=== PATIENT | male | born 1965 | race Two or more races ===

== ENCOUNTER 2023-04-01 22:27 | Inpatient (IN) | payer OTHER ==
[~2023-04-01] VITALS: Ht 177.8 cm; Wt 75.0 kg
[2023-04-02 00:49] LABS: BASOPHILS % (AUTO) 0.8 % (0.0-2.0); CALCIUM, TOTAL 8.2 mg/dL (8.8-10.5); CREATININE 1.35 mg/dL (0.60-1.30); EOSINOPHILS % (AUTO) 0.6 % (1.0-6.0); HEMATOCRIT 22.7 % (41-53); HEMOGLOBIN 7.5 g/dL (13.5-17.5); LYMPHOCYTES # (AUTO) 0.7 K/uL (1.0-4.8); LYMPHOCYTES % (AUTO) 9.3 % (22.0-44.0); MEAN CORPUSCULAR HEMOGLOBIN 29.9 pg (26.0-34.0); MEAN CORPUSCULAR HGB CONC 32.9 G/dL (31.0-37.0); MEAN CORPUSCULAR VOLUME 91 fL (80-100); MONOCYTES # (AUTO) 0.5 K/uL (0.1-1.0); MONOCYTES % (AUTO) 7.2 % (2.0-9.0); NEUTROPHILS # (AUTO) 5.7 K/uL (1.8-7.7); NEUTROPHILS % (AUTO) 82.1 % (40.0-70.0); PLATELET COUNT (AUTO) 260 K/uL (150-450); POTASSIUM 3.7 mmol/L (3.5-5.1); RED CELL DISTRIBUTION WIDTH 18.5 % (11.5-14.5)
[2023-04-02 00:55] LABS: BILIRUBIN,TOTAL 0.8 mg/dL (0.1-1.0); INR 1.2 (0.9-1.1); PROTHROMBIN TIME 12.4 SEC (9.4-11.6); TOTAL PROTEIN, SERUM 8.5 g/dL (6.4-8.2)
[2023-04-02] MEDS ORDERED: MIRT-89 PO (01:42)
[2023-04-02] MEDS ORDERED: GABA-1181 PO (01:42)
[2023-04-02] MEDS ORDERED: AMLO-257 PO (01:42)
[2023-04-02] MEDS ORDERED: ATOR40TA28 PO (01:42)
[2023-04-02] MEDS ORDERED: ASPI-1227 PO (01:42)
[2023-04-02] MEDS ORDERED: TAMS-13 PO (01:42)
[2023-04-02] MEDS ORDERED: BICT1TAB PO (01:42)
[2023-04-02] MEDS ORDERED: BUME1TAB34 PO (01:42)
[2023-04-02] MEDS ORDERED: 0.9% SODIUM CHLORIDE 10 ML SYRINGE IVP PRN (02:00)
[2023-04-02] MEDS ORDERED: ONDANSETRON HCL 4 MG/2 ML VIAL IVP PRN ×2 (02:00→10:00)
[2023-04-02] MEDS ORDERED: ACETAMINOPHEN 325 MG TABLET PO PRN ×2 (02:00→10:00)
[2023-04-02] MEDS ORDERED: SODIUM CHLORIDE 0.9% 1,000 ML IV ONE (02:15)
[2023-04-02 04:48] VITALS: BP 130/75; PULSE 71; RESP 20; TEMP 98.6
[2023-04-02 07:32] VITALS: BP 134/78; PULSE 74; RESP 20; TEMP 98.4
[2023-04-02] MEDS ORDERED: MORPHINE SULFATE 2 MG/ML SYRINGE IVP PRN (10:00)
[2023-04-02] MEDS ORDERED: ZOLPIDEM TARTRATE 5 MG TABLET PO PRN (10:00)
[2023-04-02] MEDS ORDERED: MAGNESIUM HYDROXIDE SUSPENSION 30 ML UDCUP PO PRN (10:00)
[2023-04-02] MEDS ORDERED: BISACODYL 10 MG RECTAL RECTAL SUPPOSITORY PR PRN (10:00)
[2023-04-02 11:30] LABS: EOSINOPHILS % (AUTO) 1.4 % (1.0-6.0); HEMATOCRIT 22.1 % (41-53); HEMOGLOBIN 7.1 g/dL (13.5-17.5); LYMPHOCYTES # (AUTO) 0.9 K/uL (1.0-4.8); LYMPHOCYTES % (AUTO) 17.9 % (22.0-44.0); MEAN CORPUSCULAR HEMOGLOBIN 29.4 pg (26.0-34.0); MEAN CORPUSCULAR HGB CONC 32.3 G/dL (31.0-37.0); MEAN CORPUSCULAR VOLUME 91 fL (80-100); MONOCYTES # (AUTO) 0.6 K/uL (0.1-1.0); MONOCYTES % (AUTO) 11.7 % (2.0-9.0); NEUTROPHILS # (AUTO) 3.4 K/uL (1.8-7.7); PLATELET COUNT (AUTO) 220 K/uL (150-450); RED BLOOD CELL COUNT(AUTO) 2.42 MIL/uL (4.50-5.90); RED CELL DISTRIBUTION WIDTH 18.6 % (11.5-14.5)
[2023-04-02 15:17] VITALS: BP 128/72; PULSE 77; RESP 18; TEMP 98.1
[2023-04-02] MEDS: HEPARIN SODIUM,PORCINE 5,000 UNITS/ML VIAL SQ SCH ×2 (16:06→23:36)
[2023-04-02 19:56] VITALS: BP 103/65; PULSE 81; RESP 18; TEMP 98.4
[2023-04-02] MEDS ORDERED: SODIUM CHLORIDE 0.9% 1,000 ML ONE (20:06)
[2023-04-02] MEDS: DOCUSATE SODIUM 100 MG CAPSULE PO SCH (20:13)
[2023-04-03 04:43] VITALS: BP 111/80; PULSE 84; RESP 20; TEMP 98.7
[2023-04-03 06:50] LABS: APPEARANCE,URINE HAZY (CLEAR); BILIRUBIN,URINE NEGATIVE (NEGATIVE); GLUCOSE, URINE (UA) NEGATIVE (NEGATIVE); KETONES,URINE NEGATIVE (NEGATIVE); LEUKOCYTE ESTERASE ,URINE MODERATE (NEGATIVE); NITRATE,URINE NEGATIVE (NEGATIVE); OCCULT BLOOD,URINE NEGATIVE (NEGATIVE); PH,URINE 6.5 (5.0-8.0); PROTEIN,URINE 30-70 mg/dL (NEGATIVE); SPECIFIC GRAVITIY, URINE 1.024 (1.003-1.030); UROBILINOGEN,URINE <=1.0 mg/dL (<=1.0)
[2023-04-03 07:09] LABS: BACTERIA,URINE Moderate /HPF (None Seen); RBC,URINE 0-2 /HPF (0-2)
[2023-04-03 07:11] LABS: BASOPHILS % (AUTO) 0.8 % (0.0-2.0); EOSINOPHILS % (AUTO) 0.9 % (1.0-6.0); HEMATOCRIT 24.5 % (41-53); HEMOGLOBIN 7.8 g/dL (13.5-17.5); LYMPHOCYTES # (AUTO) 1.2 K/uL (1.0-4.8); LYMPHOCYTES % (AUTO) 15.7 % (22.0-44.0); MEAN CORPUSCULAR HGB CONC 31.9 G/dL (31.0-37.0); MEAN CORPUSCULAR VOLUME 91 fL (80-100); MONOCYTES # (AUTO) 0.6 K/uL (0.1-1.0); MONOCYTES % (AUTO) 7.6 % (2.0-9.0); NEUTROPHILS # (AUTO) 5.9 K/uL (1.8-7.7); PLATELET COUNT (AUTO) 244 K/uL (150-450); RED BLOOD CELL COUNT(AUTO) 2.69 MIL/uL (4.50-5.90); RED CELL DISTRIBUTION WIDTH 18.6 % (11.5-14.5)
[2023-04-03 07:42] VITALS: BP 114/82; PULSE 68; RESP 20; TEMP 98.5
[2023-04-03 07:44] LABS: % IRON SATURATION 11.9 % (30-44)
[2023-04-03 07:46] LABS: ANION GAP 7 mmol/L (8-16); CARBON DIOXIDE 27 mmol/L (22-29); CHLORIDE 104 mmol/L (98-107); GLUCOSE,RANDOM 91 mg/dL (70-110); POTASSIUM 3.9 mmol/L (3.5-5.1); SODIUM SERUM 138 mmol/L (136-145)
[2023-04-03 07:47] LABS: ALANINE AMINOTRANSFERASE 11 U/L (12-78); ALBUMIN 1.5 g/dL (3.4-5.0); ALKALINE PHOSPHATASE 65 U/L (46-116); ASPARTATE AMINOTRANSFERASE 39 U/L (15-37); BILIRUBIN,TOTAL 0.7 mg/dL (0.1-1.0); CALCIUM, TOTAL 7.7 mg/dL (8.8-10.5); GLOMERULAR FILTR. RATE CALC > 60 mL/min (>60); TOTAL PROTEIN, SERUM 7.5 g/dL (6.4-8.2)
[2023-04-03] MEDS: BICTEGRAV/EMTRICIT/TENOFOV ALA 50-200-25 MG TABLET PO SCH (08:03)
[2023-04-03] MEDS: PANTOPRAZOLE SODIUM 40 MG DR TABLET PO SCH (08:03)
[2023-04-03] MEDS: DOCUSATE SODIUM 100 MG CAPSULE PO SCH ×2 (08:03→20:57)
[2023-04-03] MEDS: TAMSULOSIN HCL 0.4 MG CAPSULE PO SCH (08:04)
[2023-04-03] MEDS: HEPARIN SODIUM,PORCINE 5,000 UNITS/ML VIAL SQ SCH ×2 (08:05→16:15)
[2023-04-03] MEDS: ASPIRIN 81 MG DR TABLET PO SCH (08:08)
[2023-04-03] MEDS: AmLODIPine BESYLATE 5 MG TABLET PO SCH (08:09)
[2023-04-03] MEDS: ATORVASTATIN CALCIUM 40 MG TABLET PO SCH (08:10)
[2023-04-03] MEDS ORDERED: BUMETANIDE 1 MG TABLET PO SCH (09:00)
[2023-04-03 15:23] VITALS: BP 101/72; RESP 18
[2023-04-03 16:30] LABS: APPEARANCE,URINE HAZY (CLEAR); BILIRUBIN,URINE NEGATIVE (NEGATIVE); GLUCOSE, URINE (UA) NEGATIVE (NEGATIVE); KETONES,URINE NEGATIVE (NEGATIVE); LEUKOCYTE ESTERASE ,URINE MODERATE (NEGATIVE); NITRATE,URINE NEGATIVE (NEGATIVE); OCCULT BLOOD,URINE NEGATIVE (NEGATIVE); PH,URINE 6.5 (5.0-8.0); PROTEIN,URINE 30-70 mg/dL (NEGATIVE); SPECIFIC GRAVITIY, URINE 1.024 (1.003-1.030); UROBILINOGEN,URINE <=1.0 mg/dL (<=1.0)
[2023-04-03 16:45] LABS: BACTERIA,URINE Many /HPF (None Seen); RBC,URINE None Seen /HPF (0-2)
[2023-04-03 16:53] LABS: AMPHET/METH SCREEN,URINE POSITIVE (NEGATIVE); BARBITURATE SCREEN, URINE NEGATIVE (NEGATIVE); BENZODIAZEPINES SCREEN,URINE NEGATIVE (NEGATIVE); CANNABINOID SCREEN,URINE NEGATIVE (NEGATIVE); COCAINE SCREEN,URINE NEGATIVE (NEGATIVE); METHADONE SCREEN, URINE NEGATIVE (NEGATIVE); OPIATE SCREEN,URINE NEGATIVE (NEGATIVE); PHENCYCLIDINE SCREEN,URINE NEGATIVE (NEGATIVE)
[2023-04-03 20:46] VITALS: BP 123/83; PULSE 99; RESP 18; TEMP 98.2
[2023-04-03] MEDS: NYSTATIN 30 GM CREAM TP SCH (20:57)
[2023-04-04] MEDS: HEPARIN SODIUM,PORCINE 5,000 UNITS/ML VIAL SQ SCH ×3 (00:16→16:23)
[2023-04-04 04:59] VITALS: BP 117/85; PULSE 117; RESP 20; TEMP 98.3
[2023-04-04 06:00] LABS: BASOPHILS % (AUTO) 0.8 % (0.0-2.0); EOSINOPHILS % (AUTO) 1.5 % (1.0-6.0); HEMATOCRIT 27.3 % (41-53); HEMOGLOBIN 8.8 g/dL (13.5-17.5); LYMPHOCYTES # (AUTO) 1.4 K/uL (1.0-4.8); LYMPHOCYTES % (AUTO) 18.1 % (22.0-44.0); MEAN CORPUSCULAR HEMOGLOBIN 29.2 pg (26.0-34.0); MEAN CORPUSCULAR HGB CONC 32.1 G/dL (31.0-37.0); MEAN CORPUSCULAR VOLUME 91 fL (80-100); MONOCYTES # (AUTO) 0.6 K/uL (0.1-1.0); NEUTROPHILS # (AUTO) 5.4 K/uL (1.8-7.7); NEUTROPHILS % (AUTO) 71.6 % (40.0-70.0); PLATELET COUNT (AUTO) 260 K/uL (150-450); RED CELL DISTRIBUTION WIDTH 19.4 % (11.5-14.5)
[2023-04-04 06:10] LABS: ANION GAP 10 mmol/L (8-16); CALCIUM, TOTAL 7.9 mg/dL (8.8-10.5); CARBON DIOXIDE 26 mmol/L (22-29); CHLORIDE 103 mmol/L (98-107); GLOMERULAR FILTR. RATE CALC > 60 mL/min (>60); GLUCOSE,RANDOM 188 mg/dL (70-110); PHOSPHORUS 3.1 mg/dL (2.5-4.9); POTASSIUM 3.5 mmol/L (3.5-5.1); SODIUM SERUM 139 mmol/L (136-145)
[2023-04-04] MEDS: ASPIRIN 81 MG DR TABLET PO SCH (07:59)
[2023-04-04] MEDS: TAMSULOSIN HCL 0.4 MG CAPSULE PO SCH (07:59)
[2023-04-04] MEDS: AmLODIPine BESYLATE 5 MG TABLET PO SCH (07:59)
[2023-04-04] MEDS: BICTEGRAV/EMTRICIT/TENOFOV ALA 50-200-25 MG TABLET PO SCH (07:59)
[2023-04-04] MEDS: ATORVASTATIN CALCIUM 40 MG TABLET PO SCH (08:00)
[2023-04-04] MEDS: DOCUSATE SODIUM 100 MG CAPSULE PO SCH ×2 (08:00→20:30)
[2023-04-04] MEDS: PANTOPRAZOLE SODIUM 40 MG DR TABLET PO SCH (08:00)
[2023-04-04] MEDS: MULTIVITAMINS WITH MINERALS, THERAPEUTIC TABLET PO SCH (08:00)
[2023-04-04] MEDS: NYSTATIN 30 GM CREAM TP SCH ×2 (08:02→20:30)
[2023-04-04 08:31] VITALS: BP 124/90; PULSE 106; RESP 18; TEMP 97.7
[2023-04-04] MEDS: HYDROCODONE/ACETAMINOPHEN 5-325 MG TABLET PO PRN ×2 (10:06→16:26)
[2023-04-04 19:38] VITALS: BP_SYST 112; BP_SYST 120; BP_DIAS 63; BP_DIAS 89; PULSE 90; RESP 18; TEMP 98
[2023-04-04] MEDS ORDERED: THIAMINE 100 MG TABLET PO ONE (20:00)
[2023-04-05] MEDS: HEPARIN SODIUM,PORCINE 5,000 UNITS/ML VIAL SQ SCH ×3 (00:11→15:55)
[2023-04-05 04:31] VITALS: BP 122/85; PULSE 97; RESP 18; TEMP 97.9
[2023-04-05 07:22] LABS: BASOPHILS % (AUTO) 0.8 % (0.0-2.0); EOSINOPHILS % (AUTO) 1.5 % (1.0-6.0); HEMATOCRIT 26.3 % (41-53); HEMOGLOBIN 8.5 g/dL (13.5-17.5); LYMPHOCYTES # (AUTO) 1.1 K/uL (1.0-4.8); LYMPHOCYTES % (AUTO) 18.9 % (22.0-44.0); MEAN CORPUSCULAR HEMOGLOBIN 29.4 pg (26.0-34.0); MEAN CORPUSCULAR HGB CONC 32.3 G/dL (31.0-37.0); MEAN CORPUSCULAR VOLUME 91 fL (80-100); MONOCYTES # (AUTO) 0.5 K/uL (0.1-1.0); MONOCYTES % (AUTO) 9.2 % (2.0-9.0); NEUTROPHILS # (AUTO) 4.1 K/uL (1.8-7.7); NEUTROPHILS % (AUTO) 69.6 % (40.0-70.0); PLATELET COUNT (AUTO) 219 K/uL (150-450); RED BLOOD CELL COUNT(AUTO) 2.88 MIL/uL (4.50-5.90); RED CELL DISTRIBUTION WIDTH 19.4 % (11.5-14.5)
[2023-04-05 07:43] LABS: ANION GAP 8 mmol/L (8-16); CALCIUM, TOTAL 8.1 mg/dL (8.8-10.5); CARBON DIOXIDE 27 mmol/L (22-29); CHLORIDE 104 mmol/L (98-107); CREATININE 1.12 mg/dL (0.60-1.30); GLOMERULAR FILTR. RATE CALC > 60 mL/min (>60); GLUCOSE,RANDOM 105 mg/dL (70-110); POTASSIUM 4.8 mmol/L (3.5-5.1); SODIUM SERUM 139 mmol/L (136-145)
[2023-04-05 08:07] VITALS: BP 128/96; PULSE 94; RESP 20; TEMP 98.4
[2023-04-05 08:35] VITALS: BP 134/90; PULSE 89; RESP 20; TEMP 98.5
[2023-04-05] MEDS: DOCUSATE SODIUM 100 MG CAPSULE PO SCH ×2 (09:00→21:28)
[2023-04-05] MEDS: ASPIRIN 81 MG DR TABLET PO SCH (09:00)
[2023-04-05] MEDS: NYSTATIN 30 GM CREAM TP SCH ×2 (09:00→21:28)
[2023-04-05] MEDS: MULTIVITAMINS WITH MINERALS, THERAPEUTIC TABLET PO SCH (09:00)
[2023-04-05] MEDS: PANTOPRAZOLE SODIUM 40 MG DR TABLET PO SCH (09:00)
[2023-04-05] MEDS: ATORVASTATIN CALCIUM 40 MG TABLET PO SCH (09:00)
[2023-04-05] MEDS: BICTEGRAV/EMTRICIT/TENOFOV ALA 50-200-25 MG TABLET PO SCH (09:00)
[2023-04-05] MEDS: AmLODIPine BESYLATE 5 MG TABLET PO SCH (09:00)
[2023-04-05] MEDS: TAMSULOSIN HCL 0.4 MG CAPSULE PO SCH (09:00)
[2023-04-05 20:33] VITALS: BP 136/95; PULSE 101; RESP 20; TEMP 98.4
[2023-04-05] MEDS: BENZONATATE 100 MG CAPSULE PO PRN ×2 (22:27→22:29)
[2023-04-05 23:20] LABS: COVID AG,FIA SOURCE NASAL SWAB
[2023-04-06] MEDS: HEPARIN SODIUM,PORCINE 5,000 UNITS/ML VIAL SQ SCH ×4 (00:10→23:58)
[2023-04-06] MEDS ORDERED: ALBUTEROL SULFATE 2.5 MG/0.5 ML NEB SOLUTION NEB PRN (02:30)
[2023-04-06 02:45] VITALS: PULSE 101; RESP 20; O2SAT 95
[2023-04-06 02:48] VITALS: PULSE 101; RESP 20; O2SAT 95
[2023-04-06 02:57] VITALS: PULSE 104; RESP 20; O2SAT 97
[2023-04-06] MEDS: GuaiFENesin/CODEINE [SUGAR FREE] 200-20MG/10 ML SYRUP UDCUP PO PRN ×2 (03:28→20:21)
[2023-04-06] MEDS: HYDROCODONE/ACETAMINOPHEN 5-325 MG TABLET PO PRN (03:56)
[2023-04-06 04:34] VITALS: BP 129/88; PULSE 102; RESP 18; TEMP 97.6
[2023-04-06] MEDS: BUMETANIDE 0.25 MG/ML 4 ML VIAL IVP SCH (08:24)
[2023-04-06] MEDS: NYSTATIN 30 GM CREAM TP SCH ×2 (08:24→20:05)
[2023-04-06] MEDS: BICTEGRAV/EMTRICIT/TENOFOV ALA 50-200-25 MG TABLET PO SCH (08:29)
[2023-04-06] MEDS: AmLODIPine BESYLATE 5 MG TABLET PO SCH (08:33)
[2023-04-06] MEDS: MULTIVITAMINS WITH MINERALS, THERAPEUTIC TABLET PO SCH (08:33)
[2023-04-06] MEDS: DOCUSATE SODIUM 100 MG CAPSULE PO SCH ×2 (08:33→20:04)
[2023-04-06] MEDS: PANTOPRAZOLE SODIUM 40 MG DR TABLET PO SCH (08:33)
[2023-04-06] MEDS: ASPIRIN 81 MG DR TABLET PO SCH (08:34)
[2023-04-06] MEDS: ATORVASTATIN CALCIUM 40 MG TABLET PO SCH (08:36)
[2023-04-06] MEDS: TAMSULOSIN HCL 0.4 MG CAPSULE PO SCH (08:36)
[2023-04-06 19:28] VITALS: BP 138/85; PULSE 97; RESP 18; TEMP 99
[2023-04-07 04:39] VITALS: BP 117/74; PULSE 92; RESP 18; TEMP 99
[2023-04-07] MEDS: PANTOPRAZOLE SODIUM 40 MG DR TABLET PO SCH (08:05)
[2023-04-07] MEDS: BICTEGRAV/EMTRICIT/TENOFOV ALA 50-200-25 MG TABLET PO SCH (08:05)
[2023-04-07] MEDS: MULTIVITAMINS WITH MINERALS, THERAPEUTIC TABLET PO SCH (08:05)
[2023-04-07] MEDS: TAMSULOSIN HCL 0.4 MG CAPSULE PO SCH (08:05)
[2023-04-07] MEDS: AmLODIPine BESYLATE 5 MG TABLET PO SCH (08:05)
[2023-04-07] MEDS: DOCUSATE SODIUM 100 MG CAPSULE PO SCH ×2 (08:07→21:06)
[2023-04-07] MEDS: ASPIRIN 81 MG DR TABLET PO SCH (08:07)
[2023-04-07] MEDS: ATORVASTATIN CALCIUM 40 MG TABLET PO SCH (08:08)
[2023-04-07] MEDS: BUMETANIDE 0.25 MG/ML 4 ML VIAL IVP SCH (08:09)
[2023-04-07] MEDS: NYSTATIN 30 GM CREAM TP SCH ×2 (08:13→21:06)
[2023-04-07] MEDS: HEPARIN SODIUM,PORCINE 5,000 UNITS/ML VIAL SQ SCH ×3 (08:13→23:58)
[2023-04-07 08:37] VITALS: BP 121/83; PULSE 90; RESP 18; TEMP 98.6
[2023-04-07] MEDS: SPIRONOLACTONE 25 MG TABLET PO SCH (12:05)
[2023-04-07] MEDS: CIPROFLOXACIN HCL 250 MG TABLET PO SCH ×2 (12:05→21:05)
[2023-04-07 15:35] VITALS: BP 100/63; PULSE 105; RESP 20; TEMP 99.1
[2023-04-07 20:00] VITALS: BP 117/78; PULSE 98; RESP 16; TEMP 98.2
[2023-04-08 03:40] VITALS: BP 132/84; PULSE 97; RESP 18; TEMP 97.5
[2023-04-08 07:11] VITALS: BP 126/84; PULSE 92; RESP 18; TEMP 98.2
[2023-04-08] MEDS: BICTEGRAV/EMTRICIT/TENOFOV ALA 50-200-25 MG TABLET PO SCH (08:28)
[2023-04-08] MEDS: CIPROFLOXACIN HCL 250 MG TABLET PO SCH (08:28)
[2023-04-08] MEDS: SPIRONOLACTONE 25 MG TABLET PO SCH (08:29)
[2023-04-08] MEDS: TAMSULOSIN HCL 0.4 MG CAPSULE PO SCH (08:29)
[2023-04-08] MEDS: HEPARIN SODIUM,PORCINE 5,000 UNITS/ML VIAL SQ SCH (08:29)
[2023-04-08] MEDS: ASPIRIN 81 MG DR TABLET PO SCH (08:29)
[2023-04-08] MEDS: DOCUSATE SODIUM 100 MG CAPSULE PO SCH (08:29)
[2023-04-08] MEDS: PANTOPRAZOLE SODIUM 40 MG DR TABLET PO SCH (08:29)
[2023-04-08] MEDS: ATORVASTATIN CALCIUM 40 MG TABLET PO SCH (08:29)
[2023-04-08] MEDS: MULTIVITAMINS WITH MINERALS, THERAPEUTIC TABLET PO SCH (08:29)
[2023-04-08] MEDS: NYSTATIN 30 GM CREAM TP SCH (08:30)
[2023-04-08] MEDS ORDERED: FUROSEMIDE 20 MG TABLET PO SCH (09:00)
[2023-04-08 15:00] VITALS: BP 110/76; PULSE 108; RESP 20; TEMP 97.9
== END 2023-04-08 15:00 | DRG 663 ==
LOC: EMS 22:31 → 6N 04-02 02:42 → UNDOADMIN 04-02 02:42 → 6S 04-02 02:42
PROVIDERS: ADMIT Hospitalist; ATTEND Hospitalist
PROC: 0W9G3ZZ Drainage of Peritoneal Cavity, Percutaneous Approach (ICD-10-PCS; principal; 2023-04-06)
DX: D64.89 Other specified anemias (principal); N17.9 Acute kidney failure, unspecified; E43 Unspecified severe protein-calorie malnutrition; R64 Cachexia; R18.8 Other ascites; K74.60 Unspecified cirrhosis of liver; R62.7 Adult failure to thrive; I50.9 Heart failure, unspecified; I11.0 Hypertensive heart disease with heart failure; D63.8 Anemia in other chronic diseases classified elsewhere; B36.9 Superficial mycosis, unspecified; Z20.822 Contact with and (suspected) exposure to COVID-19; E78.5 Hyperlipidemia, unspecified; N39.0 Urinary tract infection, site not specified; F10.10 Alcohol abuse, uncomplicated; N40.0 Benign prostatic hyperplasia without lower urinary tract symptoms; Z21 Asymptomatic human immunodeficiency virus [HIV] infection status; Z68.23 Body mass index [BMI] 23.0-23.9, adult; Z86.73 Personal history of transient ischemic attack (TIA), and cerebral infarction without residual deficits; Z79.82 Long term (current) use of aspirin; Z79.899 Other long term (current) drug therapy; Z91.148 Patient's other noncompliance with medication regimen for other reason
CPT/HCPCS: 49083; 70450; 71045; 76700; 76942; 80048; 80053; 80307; 81001; 82271; 82728; 83540; 83550; 83735; 84100; 85025; 85610; 85730; 87086; 87186; 93306; 94640; 97163; 97530; 99285; J1644; J3490; J7030; Q9967; 36415-L1; 36415-TC; J7613